=== PATIENT | male | born 1980 | race Caucasian/White ===

== ENCOUNTER 2019-05-16 08:31 | Emergency (ER) | payer BC ==
[~2019-05-16] VITALS: Ht 188 cm; Wt 81.6 kg
--- NOTE | 2019-05-16 08:36 | NUR ---
PATIENT A/OX4, NO DISTRESS NOTED, AT BEDSIDE FOR EVAL. STROKE ASSESSMENT COMPLETED.
[2019-05-16 08:56] VITALS: BP 136/83
--- NOTE | 2019-05-16 08:56 | NUR ---
Patient discharged to home in stable condition. Written and verbal after care instructions given. Patient verbalizes understanding of instruction.
== END 2019-05-16 09:07 | disposition home or self-care (01) ==
LOC: ER 08:34
DX: G51.0 Bell's palsy (principal)